=== PATIENT | female | born 1990 | race Caucasian/White ===

== ENCOUNTER 2022-01-26 11:22 | Inpatient (IN) | payer BC ==
[~2022-01-26 11:22] MED LIST: Bupivacaine 0.25% HCL 30 ML VIAL ONE; Lidocaine 2% PF 5 ML VIAL ONE; ePHEDrine Sulfate 50 MG/10 ML VIAL ONE
[2022-01-26] MEDS ORDERED: Promethazine HCl 25 MG/ML VIAL IM PRN (11:54)
[2022-01-26] MEDS ORDERED: Ondansetron PF 4 MG/2 ML Vial IVP PRN (11:54)
[2022-01-26] MEDS ORDERED: Misoprostol 200 MCG TAB PR PRN (11:54)
[2022-01-26] MEDS ORDERED: Docusate 100 MG CAP PO PRN (11:54)
[2022-01-26] MEDS ORDERED: Acetaminophen 500 MG TAB PO PRN (11:54)
[2022-01-26] MEDS ORDERED: Butorphanol Tartrate 1 MG/ML VIAL SLOW IVP PRN (11:54)
[2022-01-26] MEDS ORDERED: Ibuprofen 800 MG TAB PO PRN (11:54)
[2022-01-26] MEDS ORDERED: Lidocaine 1% (PF) 30 ML VIAL SC PRN (11:54)
[2022-01-26] MEDS ORDERED: HYDROcodone/Acetaminophen 5/325 mg Tablet PO PRN ×2 (11:54)
[2022-01-26] MEDS ORDERED: hydrALAZINE 20 MG/ML VIAL SLOW IVP PRN (11:54)
[2022-01-26] MEDS ORDERED: NS w/ Oxytocin 30 units 500 ML IV SCH ×2 (12:00)
[2022-01-26] MEDS ORDERED: Lactated Ringer's 1,000 ML IV SCH (12:00)
[2022-01-26] MEDS ORDERED: Diphenoxylate HCl/Atropine Tablet PO PRN ×2 (12:00)
[2022-01-26 13:48] LABS: Hemoglobin 10.5 g/dL (12.0-15.5); Mean Corpuscular HGB CONC 33.2 g/dL (32.0-36.0); Mean Corpuscular Hemoglobin 30.2 pg (27.0-33.0); Mean Corpuscular Volume 90.8 fl (81.6-98.3); Mean Platelet Volume 12.4 fl (7.4-10.4); Platelet Count 177 10x3/uL (150-450); RBC Distribution Width 12.2 % (11.5-14.5); Red Blood Cell (RBC) Count 3.48 10x6/uL (3.90-5.03); White Blood Cell (WBC) Count 6.1 10x3/uL (3.5-10.5)
[2022-01-26 14:13] VITALS: BMI 27.1
[2022-01-26 14:31] LABS: Syphilis Antibody Nonreactive (Nonreactive); Syphilis Antibody Index 0.03 S/CO (<1.00 Non-Reactive)
[2022-01-26 14:32] LABS: HIV (1/2) Antibody/Antigen Non-Reactive (NonReactive); HIV 1/2 INDEX 0.07 S/CO (<1.00); Hep B Surf Ag Non-Reactive S/CO (NonReactive)
[2022-01-26 14:41] LABS: HBSAg Index 0.15 S/CO (0-0.99)
[2022-01-26 15:54] LABS: SARS-CoV-2 NAA Rapid Test Not Detected (NotDetected)
[2022-01-26] MEDS ORDERED: Zolpidem Tartrate 5 MG TAB PO PRN (22:50)
[2022-01-26] MEDS ORDERED: Melatonin 3 MG TAB PO SCH (23:45)
[2022-01-27] MEDS ORDERED: Fentanyl 2 mcg/Bup 0.1% Cadd 100 ML ONE (00:52)
[2022-01-27] MEDS ORDERED: Naloxone HCl 0.4 mg/ml Vial IVP PRN ×2 (01:46)
[2022-01-27] MEDS ORDERED: Acetaminophen 325 MG TAB PO PRN (01:46)
[2022-01-27] MEDS ORDERED: ePHEDrine Sulfate 50 MG/10 ML VIAL SLOW IVP PRN (01:46)
[2022-01-27] MEDS ORDERED: Hydrocerin (Eucerin) Cream 120 gm Jar TOP PRN (01:46)
[2022-01-27] MEDS ORDERED: Lactated Ringer's 500 ML IV PRN (01:46)
[2022-01-27] MEDS ORDERED: diphenhydrAMINE 50 MG/ML VIAL IVP PRN (01:46)
[2022-01-27] MEDS ORDERED: Ondansetron PF 4 MG/2 ML Vial IVP PRN ×2 (01:46→07:14)
[2022-01-27] MEDS ORDERED: Promethazine HCl 25 MG/ML VIAL IM PRN (01:46)
[2022-01-27] MEDS ORDERED: Communication Order-Pharmacy FS SCH (02:00)
[2022-01-27] MEDS ORDERED: Fentanyl 2 mcg/Bupivacaine 0.1% Cassette 100 ML EPIDURAL SCH (02:00)
[2022-01-27] MEDS ORDERED: HYDROcodone/Acetaminophen 5/325 mg Tablet PO PRN ×2 (07:14)
[2022-01-27] MEDS ORDERED: Bisacodyl 10 MG SUPP PR PRN (07:14)
[2022-01-27] MEDS ORDERED: hydrALAZINE 20 MG/ML VIAL SLOW IVP PRN (07:14)
[2022-01-27] MEDS ORDERED: Milk Of Magnesia 30 ML UDCUP PO PRN (07:14)
[2022-01-27] MEDS ORDERED: Zolpidem Tartrate 5 MG TAB PO PRN (07:14)
[2022-01-27] MEDS ORDERED: Misoprostol 200 MCG TAB VAG PRN (07:14)
[2022-01-27] MEDS ORDERED: diphenhydrAMINE 25 MG CAP PO PRN (07:14)
[2022-01-27] MEDS ORDERED: Preparation H Ointment 28 GM TUBE PR PRN (07:14)
[2022-01-27] MEDS ORDERED: Lanolin Ointment 7 GM TUBE TOP PRN (07:14)
[2022-01-27] MEDS ORDERED: NS w/ Oxytocin 30 units 500 ML IV SCH (07:15)
[2022-01-27] MEDS: Ferrous Sulfate 325 MG TAB PO SCH ×2 (09:58→19:39)
[2022-01-27] MEDS: Prenatal Vitamin 1 TAB PO SCH (10:16)
[2022-01-27] MEDS: Docusate 100 MG CAP PO SCH ×2 (10:16→22:16)
[2022-01-27] MEDS: Ibuprofen 800 MG TAB PO SCH ×3 (10:16→22:16)
[2022-01-28] MEDS: Ibuprofen 800 MG TAB PO SCH ×3 (04:34→21:29)
[2022-01-28 06:30] LABS: Hemoglobin 11.3 g/dL (12.0-15.5); Mean Corpuscular HGB CONC 33.5 g/dL (32.0-36.0); Mean Corpuscular Hemoglobin 30.1 pg (27.0-33.0); Mean Corpuscular Volume 89.9 fl (81.6-98.3); Mean Platelet Volume 12.1 fl (7.4-10.4); Platelet Count 179 10x3/uL (150-450); RBC Distribution Width 12.4 % (11.5-14.5); Red Blood Cell (RBC) Count 3.75 10x6/uL (3.90-5.03); White Blood Cell (WBC) Count 11.6 10x3/uL (3.5-10.5)
[2022-01-28] MEDS ORDERED: Boostrix 0.5 ML (Tdap) VIAL IM ONE (07:14)
[2022-01-28] MEDS: Ferrous Sulfate 325 MG TAB PO SCH (08:05)
[2022-01-28] MEDS: Prenatal Vitamin 1 TAB PO SCH (10:14)
[2022-01-28] MEDS: Docusate 100 MG CAP PO SCH ×2 (10:14→21:29)
[2022-01-29] MEDS: Ibuprofen 800 MG TAB PO SCH (05:26)
[2022-01-29] MEDS: Ferrous Sulfate 325 MG TAB PO SCH ×2 (07:34→07:35)
[2022-01-29 08:24] VITALS: BP 121/73; TEMP 97.7
[2022-01-29] MEDS: Docusate 100 MG CAP PO SCH (10:48)
[2022-01-29] MEDS: Prenatal Vitamin 1 TAB PO SCH (10:48)
== END 2022-01-29 18:05 | disposition home or self-care (01) | DRG 807 ==
LOC: CSHLD 11:22 → CSHPED 01-27 09:35
PROVIDERS: ADMIT Obstetrics & Gynecology; ATTEND Obstetrics & Gynecology
PROC: 10E0XZZ Delivery of Products of Conception, External Approach (ICD-10-PCS; principal; 2022-01-27)
PROC: 10907ZC Drainage of Amniotic Fluid, Therapeutic from Products of Conception, Via Natural or Artificial Opening (ICD-10-PCS; 2022-01-27)
DX: O41.03X0 Oligohydramnios, third trimester, not applicable or unspecified (principal); Z37.0 Single live birth; Z20.822 Contact with and (suspected) exposure to COVID-19; Z3A.38 38 weeks gestation of pregnancy; D64.9 Anemia, unspecified; O99.02 Anemia complicating childbirth; Z87.440 Personal history of urinary (tract) infections; Z88.2 Allergy status to sulfonamides
CPT/HCPCS: 51702; 85027; 86780; 86850; 86900; 86901; 87340; 87389; 88307; J2001; J2405; J2590; S0020; U0002